=== PATIENT | male | born 1965 | race Caucasian/White ===

== ENCOUNTER → 2018-01-30 | Outpatient (CLI) | payer BC ==
[~2018-01-30] MED LIST: MVI in SODIUM CHLORIDE 0.9% 1,000 ML IVB ONE; MVI in SODIUM CHLORIDE 0.9% 1,010 ML ONE
[2018-01-30 11:30] VITALS: BP 108/55
[2018-01-30 14:35] VITALS: BP 134/85
[2018-01-30 16:15] LABS: Basophils # (auto) 0.1 uL; Basophils % (auto) 0.7 % (0.0-2.0); Eosinophils # (auto) 0.2 uL; Eosinophils % (auto) 2.8 % (0.0-7.0); Hematocrit 48.3 % (41.0-53.0); Hemoglobin 16.3 g/dL (13.5-17.5); Lymphocytes # (auto) 1.8 uL; Lymphocytes % (auto) 21.6 % (10.0-50.0); Mean Corpuscular Hemoglobin 30.6 pg (28.0-32.0); Mean Corpuscular Hgb Conc. 33.6 g/dL (32.0-36.0); Mean Corpuscular Volume 90.9 fL (80.0-100.0); Monocytes # (auto) 0.6 uL; Monocytes % (auto) 7.1 % (0.0-12.0); Neutrophils # (auto) 5.7 uL; Neutrophils % (auto) 67.8 % (37.0-80.0); Nucleated Red Blood Cells % 0.2 %; Platelet Count (auto) 230 10^3/uL (140-450); Red Blood Cells 5.32 10^6/uL (4.5-5.90); Red Cell Distribution Width 13.6 % (11.8-14.3); White Blood Cell 8.4 10^3/uL (4.4-10.8)
[2018-01-30 16:31] LABS: Potassium 3.9 mmol/L (3.5-5.1)
[2018-01-30 16:42] LABS: Albumin 3.5 g/dL (3.4-5.0); BUN/Creatinine Ratio 15.2; Bilirubin, Total 0.4 mg/dL (0.2-1.0); Calcium 9.1 mg/dL (8.5-10.1); Magnesium 2.4 mg/dL (1.6-2.6); Total Protein 6.9 g/dL (6.4-8.2)
== END | disposition home or self-care (01) ==
LOC: CHF HDHVI 11:14
PROVIDERS: ATTEND Internal Medicine Cardiovascular Disease
DX: E83.40 Disorders of magnesium metabolism, unspecified (principal); D64.9 Anemia, unspecified; I10 Essential (primary) hypertension
CPT/HCPCS: 36415; 80053; 83735; 85025; 93005; 96365; 96366; G0463; J3411; J3475

== ENCOUNTER → 2018-02-06 | Outpatient (CLI) | payer BC | END | disposition home or self-care (01) | LOC: Rad HDHVI 15:09 | PROVIDERS: ATTEND Internal Medicine Cardiovascular Disease | DX: I08.1 Rheumatic disorders of both mitral and tricuspid valves (principal); R10.9 Unspecified abdominal pain; I10 Essential (primary) hypertension; E78.00 Pure hypercholesterolemia, unspecified | CPT/HCPCS: 74150; 93306 ==

== ENCOUNTER 2020-01-28 10:49 | Inpatient (IN) | payer BC ==
[~2020-01-28] VITALS: Ht 185.4 cm; Wt 121.3 kg
[2020-01-28] MEDS ORDERED: ADENOSINE 6 MG/2 ML INJ IV ONE ×4 (11:04→11:45)
[2020-01-28] MEDS ORDERED: THIAMINE 100mg/ml INJ (200mg/2ml VIAL) IV ONE (11:15)
[2020-01-28] MEDS ORDERED: SODIUM CHLORIDE 0.9% 1,000 ML IV ONE ×2 (11:15)
[2020-01-28] MEDS ORDERED: LORazepam 2MG/ML-1ML VIAL IV ONE (11:15)
[2020-01-28 11:19] LABS: Eosinophils # (auto) 0.2 10 ^3/uL (0-0.8); Mean Corpuscular Hgb Conc. 34.5 g/dL (32.0-36.0); Monocytes # (auto) 0.4 10 ^3/uL (0-1.3); Red Blood Cells 5.57 10^6/uL (4.5-5.90)
[2020-01-28] MEDS ORDERED: dilTIAZem HCL 50 MG/10 ML VIAL IV ONE (11:20)
[2020-01-28 11:21] LABS: Basophils # (auto) 0.1 10 ^3/uL (0-0.2); Basophils % (auto) 0.7 % (0.0-2.0); Hematocrit 52.3 % (41.0-53.0); Lymphocytes % (auto) 22.9 % (10.0-50.0); Mean Corpuscular Hemoglobin 32.4 pg (28.0-32.0); Mean Corpuscular Volume 93.9 fL (80.0-100.0); Neutrophils # (auto) 6.1 10 ^3/uL (1.6-8.6); Neutrophils % (auto) 69.4 % (37.0-80.0); Nucleated Red Blood Cells % 0.1 %; Platelet Count (auto) 284 10^3/uL (140-450); Red Cell Distribution Width 13.4 % (11.8-14.3); White Blood Cell 8.7 10^3/uL (4.4-10.8)
[2020-01-28] MEDS ORDERED: dilTIAZem 125mg/125ml BAG KIT 125 ML IV ONE ×2 (11:24→11:45)
[2020-01-28 11:36] LABS: Anion Gap 7 (5-15); Blood Urea Nitrogen 11 mg/dL (7-18); Calcium 9.3 mg/dL (8.5-10.1); Carbon Dioxide 23 mmol/L (21-32); Chloride 105 mmol/L (98-107); Glucose 142 mg/dL (74-106); Potassium 4.7 mmol/L (3.5-5.1); Sodium 135 mmol/L (136-145)
[2020-01-28 11:41] LABS: Alanine Aminotransferase 65 U/L (16-61); Alkaline Phosphatase 50 U/L (45-117); Aspartate Aminotransferase 38 U/L (15-37); BUN/Creatinine Ratio 7.6; Bilirubin, Total 0.6 mg/dL (0.2-1.0); GFR African American 66 mL/min; GFR Non-African American 55 mL/min
[2020-01-28] MEDS ORDERED: dilTIAZem 25 MG/5 ML VIAL IV ONE (11:45)
[2020-01-28] MEDS ORDERED: NITROGLYCERIN 0.4 MG SL TAB SL PRN (12:15)
[2020-01-28] MEDS ORDERED: FOLIC ACID 1 MG, MULTIPLE VITAMIN 10 ML, MAGNESIUM SULF SDV 50% 8 MEQ, THIAMINE INJ 100... INJ SCH ×5 (12:15)
[2020-01-28] MEDS ORDERED: LORazepam 2MG/ML-1ML VIAL IV PRN (12:15)
[2020-01-28] MEDS ORDERED: ACETAMINOPHEN 500 MG TAB PO PRN (12:15)
[2020-01-28] MEDS ORDERED: HYDROcodone-ACET 5/325MG TAB PO PRN (12:15)
[2020-01-28] MEDS ORDERED: ONDANSETRON HCL 4 MG/2 ML VIAL IV PRN (12:15)
[2020-01-28] MEDS ORDERED: MORPHINE SULF INJ 2 MG/ML SYRINGE 1ML IV PRN ×2 (12:15)
[2020-01-28] MEDS: METOPROLOL SUCCINATE XL 50 MG TAB PO SCH (12:23)
[2020-01-28] MEDS ORDERED: DIGOXIN (250MCG/ML) 2 ML AMPULE ONE (13:42)
[2020-01-28] MEDS ORDERED: GLUCTAB8 PO (13:44)
[2020-01-28] MEDS ORDERED: OMEG306C PO (13:44)
[2020-01-28] MEDS ORDERED: ASCO500T11 PO (13:44)
[2020-01-28] MEDS ORDERED: MULT-940 PO (13:44)
[2020-01-28] MEDS ORDERED: TEST200I32 IM (13:44)
[2020-01-28] MEDS ORDERED: CHOL20007 PO (13:44)
[2020-01-28] MEDS ORDERED: [UNRECOGNIZED DRUG - CODE] PO (13:44)
[2020-01-28] MEDS ORDERED: TADA20TA47 PO (13:44)
--- NOTE | 2020-01-28 15:06 | NUR ---
Admit to [facility] admitted to [facility] via gurney on ekg monitor, and portable 02 at 2LNC. Patient transfered to bed, connected to unit monitoring and oxygen, and weighed by bedscale. Patient oriented to ALDA SMITH, primary RN, unit, room, bed, and unit policies regarding patient care and visiting hours. All questions and concerns addressed, patient verbalized understanding. Vital Signs: 116/74 133 14 98% on 2L NC 97.3F Oral
--- NOTE | 2020-01-28 15:08 | NUR ---
ECHO Ted, technology services manager, at bedside.
[2020-01-28] MEDS: DIGOXIN (250MCG/ML) 2 ML AMPULE IV SCH ×2 (15:51→21:13)
[2020-01-28 16:00] VITALS: BP_SYST 116; BP_SYST 142; BP_DIAS 74
[2020-01-28 16:01] LABS: Magnesium 2.3 mg/dL (1.6-2.6)
[2020-01-28 16:08] LABS: Cholesterol 209 mg/dL (< 200); HDL Cholesterol 33 mg/dL (40-59); Triglycerides 425 mg/dL (< 150)
[2020-01-28 16:09] LABS: Free T3 3.53 pg/mL (2.3-4.2); Free T4 (Free Thyroxine) 1.05 ng/dL (0.89-1.76)
[2020-01-28 19:00] VITALS: BP 138/89
[2020-01-28 20:00] VITALS: BP_SYST 129; BP_SYST 134; BP_DIAS 84; BP_DIAS 85
--- NOTE | 2020-01-28 20:00 | NUR ---
SHIFT OPENING NOTE RECEIVED PATIENT AWAKE, ALERT AND ORIENTED X4. NO SOB, DISTRESS OR PAIN NOTED. ON ROOM AIR POX 96%. ON CARDIZEM DRIP AT 10 AND INFUSING BANANA BAG. USES URINAL INDEPENDENTLY. PHYSICAL ASSESSMENT COMPLETED, SEE INTERVENTIONS. INSTRUCTED ON POC AND TO CALL FOR ASSIST NEEDED. BED IS IN THE LOWEST POSITION WITH SIDE RAILS UP X2, CALL LIGHT IS WITHIN REACH.
[2020-01-28 21:00] VITALS: BP 132/81
[2020-01-28 22:00] VITALS: BP 127/82
[2020-01-29] VITALS (10 sets, daily range): BP systolic 107–157; BP diastolic 65–94
--- NOTE | 2020-01-29 02:15 | NUR ---
ROUNDS PATIENT IS QUIETLY LAYING IN BED SLEEPING. NO SOB, DISTRESS OR PAIN NOTED. PATIENT HAS SLEEP APNEA WITH SATS DECREASING TO LOW 80'S UNSUSTAINED. WILL CONTINUE TO CLOSELY MONITOR.
[2020-01-29] MEDS: DIGOXIN (250MCG/ML) 2 ML AMPULE IV SCH (02:17)
--- NOTE | 2020-01-29 07:15 | NUR ---
END OF SHIFT REPORT GIVEN AND CARE ENDORSED TO FRANKIE CORONADO.
[2020-01-29] MEDS ORDERED: APIXABAN 2.5 MG TAB PO SCH (10:00)
[2020-01-29] MEDS ORDERED: ASPirin 81 mg TAB PO SCH (10:00)
[2020-01-29] MEDS: METOPROLOL SUCCINATE XL 50 MG TAB PO SCH (10:08)
[2020-01-29 11:18] LABS: Albumin 3.5 g/dL (3.4-5.0); Calcium 9.2 mg/dL (8.5-10.1); Potassium 4.2 mmol/L (3.5-5.1)
[2020-01-29 11:21] LABS: BUN/Creatinine Ratio 11.1; Bilirubin, Total 0.6 mg/dL (0.2-1.0); Total Protein 6.8 g/dL (6.4-8.2)
[2020-01-29] MEDS ORDERED: APIX5TAB PO (11:33)
[2020-01-29] MEDS ORDERED: METO-6 PO ×2 (11:33→11:35)
[2020-01-29] MEDS ORDERED: METOPROLOL SUCCINATE XL 50 MG TAB PO ONE (11:45)
[2020-01-29] MEDS ORDERED: ATOR20TA50 PO (11:47)
[2020-01-29] MEDS ORDERED: APIXABAN 5 MG TAB PO SCH (22:00)
== END 2020-01-29 16:35 | disposition home or self-care (01) | DRG 308 ==
LOC: ER 10:49 → TELE 10:50 → DOU IN ICU 14:49
PROVIDERS: ADMIT Nurse Practitioner Acute Care; ATTEND Internal Medicine
DX: I48.92 Unspecified atrial flutter (principal); I50.31 Acute diastolic (congestive) heart failure; I13.0 Hypertensive heart and chronic kidney disease with heart failure and stage 1 through stage 4 chronic kidney disease, or unspecified chronic kidney disease; I48.91 Unspecified atrial fibrillation; N18.30 Chronic kidney disease, stage 3 unspecified; F10.20 Alcohol dependence, uncomplicated; E66.9 Obesity, unspecified; E78.5 Hyperlipidemia, unspecified; F12.90 Cannabis use, unspecified, uncomplicated; F17.200 Nicotine dependence, unspecified, uncomplicated; F41.9 Anxiety disorder, unspecified; Z79.01 Long term (current) use of anticoagulants; Z68.35 Body mass index [BMI] 35.0-35.9, adult
CPT/HCPCS: 36415; 71045; 80053; 80061; 80320; 83036; 83735; 83880; 84439; 84443; 84481; 84484; 85025; 93005; 93306; 96374; 96375; 99291; G0378; J0153

== ENCOUNTER 2020-02-08 09:22 | Inpatient (IN) | payer BC ==
[~2020-02-08] VITALS: Ht 185.4 cm; Wt 121.3 kg
[~2020-02-08 09:22] MED LIST changes: +APIX5TAB PO; +ASCO500T11 PO; +ATOR20TA50 PO; +CHOL20007 PO; +GLUCTAB8 PO; +METO-6 PO; +MULT-940 PO; -MVI in SODIUM CHLORIDE 0.9% 1,000 ML IVB ONE; -MVI in SODIUM CHLORIDE 0.9% 1,010 ML ONE; +OMEG306C PO; +TADA20TA47 PO; +TEST200I32 IM
[2020-02-08] MEDS ORDERED: THIAMINE 100mg/ml INJ (200mg/2ml VIAL) ONE (09:44)
[2020-02-08] MEDS ORDERED: SODIUM CHLORIDE 0.9% 1,000 ML IV ONE (10:00)
[2020-02-08] MEDS ORDERED: ASPirin 81 mg TAB PO ONE (10:00)
[2020-02-08] MEDS ORDERED: SODIUM CHLORIDE 0.9% 1,000 ML IVB ONE (10:00)
[2020-02-08] MEDS ORDERED: THIAMINE 100mg/ml INJ (200mg/2ml VIAL) IV ONE (10:15)
[2020-02-08 10:22] LABS: Basophils # (auto) 0.1 10 ^3/uL (0-0.2); Basophils % (auto) 0.8 % (0.0-2.0); Eosinophils # (auto) 0.3 10 ^3/uL (0-0.8); Eosinophils % (auto) 3.4 % (0.0-7.0); Hematocrit 48.9 % (41.0-53.0); Hemoglobin 16.6 g/dL (13.5-17.5); Lymphocytes # (auto) 1.9 10 ^3/uL (0.4-5.4); Lymphocytes % (auto) 23.2 % (10.0-50.0); Mean Corpuscular Hemoglobin 32.1 pg (28.0-32.0); Mean Corpuscular Volume 94.4 fL (80.0-100.0); Monocytes # (auto) 0.6 10 ^3/uL (0-1.3); Monocytes % (auto) 6.8 % (0.0-12.0); Neutrophils # (auto) 5.4 10 ^3/uL (1.6-8.6); Neutrophils % (auto) 65.8 % (37.0-80.0); Nucleated Red Blood Cells % 0.1 %; Platelet Count (auto) 230 10^3/uL (140-450); Red Blood Cells 5.18 10^6/uL (4.5-5.90); Red Cell Distribution Width 13.1 % (11.8-14.3); White Blood Cell 8.2 10^3/uL (4.4-10.8)
[2020-02-08 10:25] LABS: Alanine Aminotransferase 66 U/L (16-61); Albumin 3.7 g/dL (3.4-5.0); Anion Gap 10 (5-15); Blood Alcohol < 3.0 mg/dL (0-5); Blood Urea Nitrogen 13 mg/dL (7-18); Calcium 8.6 mg/dL (8.5-10.1); Carbon Dioxide 22 mmol/L (21-32); Chloride 105 mmol/L (98-107); Glucose 171 mg/dL (74-106); Potassium 4.1 mmol/L (3.5-5.1); Sodium 137 mmol/L (136-145)
[2020-02-08 10:30] LABS: Alkaline Phosphatase 51 U/L (45-117); Aspartate Aminotransferase 42 U/L (15-37); BUN/Creatinine Ratio 11.2; Bilirubin, Total 0.4 mg/dL (0.2-1.0); GFR African American 84 mL/min; GFR Non-African American 70 mL/min; Total Protein 7.2 g/dL (6.4-8.2)
[2020-02-08] MEDS ORDERED: METOPROLOL TARTRATE 50 MG TAB PO ONE (12:30)
[2020-02-08] MEDS ORDERED: METOPROLOL TARTRATE 1MG/1ML-5ML VIAL IV ONE ×2 (12:45→16:15)
[2020-02-08] MEDS ORDERED: ACETAMINOPHEN 500 MG TAB PO PRN (16:15)
[2020-02-08] MEDS ORDERED: LORazepam 0.5 MG TAB PO PRN (16:15)
[2020-02-08] MEDS ORDERED: DOCUSATE CALCIUM 240 MG CAP PO PRN (16:15)
[2020-02-08] MEDS ORDERED: MORPHINE SULF INJ 2 MG/ML SYRINGE 1ML IV PRN ×2 (16:15)
[2020-02-08] MEDS ORDERED: NITROGLYCERIN 0.4 MG SL TAB SL PRN (16:15)
[2020-02-08] MEDS ORDERED: LABETALOL HCL 5 MG/ML 4ML SYRINGE IV ONE (16:15)
[2020-02-08] MEDS ORDERED: METOPROLOL SUCCINATE XL 50 MG TAB PO ONE (17:45)
[2020-02-08] MEDS ORDERED: DIGOXIN (250MCG/ML) 2 ML AMPULE IV ONE (17:45)
[2020-02-08 18:47] LABS: INR 0.96 (0.9-1.15)
[2020-02-08] MEDS: LABETALOL HCL 5 MG/ML 4ML SYRINGE IV PRN ×4 (20:46→23:12)
[2020-02-08] MEDS: APIXABAN 5 MG TAB PO SCH (22:00)
[2020-02-09] MEDS ORDERED: SODIUM CHLORIDE 0.9% 500 ML IV ONE ×2 (01:45→04:15)
[2020-02-09] MEDS ORDERED: METOPROLOL TARTRATE 50 MG TAB PO ONE ×2 (02:45→04:15)
[2020-02-09] MEDS: LABETALOL HCL 5 MG/ML 4ML SYRINGE IV PRN (03:14)
[2020-02-09] MEDS ORDERED: cloNIDine HCL 0.1 MG TAB PO PRN (08:30)
[2020-02-09 08:33] LABS: Basophils # (auto) 0.1 10 ^3/uL (0-0.2); Basophils % (auto) 0.8 % (0.0-2.0); Eosinophils # (auto) 0.3 10 ^3/uL (0-0.8); Eosinophils % (auto) 2.7 % (0.0-7.0); Hematocrit 47.8 % (41.0-53.0); Hemoglobin 16.2 g/dL (13.5-17.5); Lymphocytes # (auto) 1.9 10 ^3/uL (0.4-5.4); Lymphocytes % (auto) 18.2 % (10.0-50.0); Mean Corpuscular Hemoglobin 31.6 pg (28.0-32.0); Mean Corpuscular Hgb Conc. 33.8 g/dL (32.0-36.0); Mean Corpuscular Volume 93.5 fL (80.0-100.0); Monocytes # (auto) 0.7 10 ^3/uL (0-1.3); Monocytes % (auto) 6.5 % (0.0-12.0); Neutrophils # (auto) 7.6 10 ^3/uL (1.6-8.6); Neutrophils % (auto) 71.8 % (37.0-80.0); Nucleated Red Blood Cells % 0.2 %; Platelet Count (auto) 261 10^3/uL (140-450); Red Blood Cells 5.11 10^6/uL (4.5-5.90); Red Cell Distribution Width 12.9 % (11.8-14.3); White Blood Cell 10.5 10^3/uL (4.4-10.8)
[2020-02-09 08:56] LABS: Alanine Aminotransferase 50 U/L (16-61); Albumin 3.4 g/dL (3.4-5.0); Anion Gap 8 (5-15); Aspartate Aminotransferase 23 U/L (15-37); BUN/Creatinine Ratio 13.7; Blood Urea Nitrogen 13 mg/dL (7-18); Calcium 8.4 mg/dL (8.5-10.1); Carbon Dioxide 22 mmol/L (21-32); Chloride 108 mmol/L (98-107); Cholesterol 173 mg/dL (< 200); GFR African American 106 mL/min; GFR Non-African American 88 mL/min; Glucose 114 mg/dL (74-106); Potassium 4.3 mmol/L (3.5-5.1); Sodium 138 mmol/L (136-145)
[2020-02-09 09:00] LABS: Alkaline Phosphatase 43 U/L (45-117); Bilirubin, Total 0.4 mg/dL (0.2-1.0); HDL Cholesterol 35 mg/dL (40-59); Total Protein 6.8 g/dL (6.4-8.2); Triglycerides 471 mg/dL (< 150)
[2020-02-09] MEDS: THIAMINE HCL 100 MG TAB PO SCH (09:01)
[2020-02-09] MEDS: ATORVASTATIN 20 MG TAB PO SCH (09:01)
[2020-02-09] MEDS: APIXABAN 5 MG TAB PO SCH ×2 (09:01→22:03)
[2020-02-09] MEDS: METOPROLOL TARTRATE 50 MG TAB PO SCH ×2 (09:02→22:04)
[2020-02-09] MEDS: PANTOPRAZOLE 40 MG TAB PO SCH (09:02)
[2020-02-09] MEDS ORDERED: METOPROLOL SUCCINATE XL 50 MG TAB PO SCH ×2 (10:00)
[2020-02-09] MEDS ORDERED: METOPROLOL TARTRATE 50 MG TAB PO SCH (10:00)
--- NOTE | 2020-02-09 14:00 | NUR ---
Telemetry admit from [facility] admitted to Telemetry unit after SBAR received. Patient oriented to primary RN, unit, room, bed, and unit policies regarding patient care and visiting hours. Patient now on continuous telemetry monitoring, tele box # [id number] and telemetry reading on arrival to unit is SR 75. Patient weighed by bedscale and encouraged to call if they need something. All questions and concerns addressed, patient verbalized understanding.
[2020-02-09 14:24] VITALS: BP 137/86
[2020-02-09 17:00] VITALS: BP 132/98
[2020-02-09 20:00] VITALS: BP 135/87
[2020-02-10 00:43] VITALS: BP 146/94
[2020-02-10 06:11] VITALS: BP 142/96
--- NOTE | 2020-02-10 07:13 | NUR ---
PT AMBULATED THROUGH THE SHIFT IN THE PATINO'DENIES PAIN;VITAL SIGNS STABLE; CALL LIGHT IN REACH;IN BED WATCHING TELEVISION.
[2020-02-10 08:32] VITALS: BP 126/78
[2020-02-10] MEDS: ATORVASTATIN 20 MG TAB PO SCH (09:12)
[2020-02-10] MEDS: PANTOPRAZOLE 40 MG TAB PO SCH (09:13)
[2020-02-10] MEDS: APIXABAN 5 MG TAB PO SCH ×2 (09:13→21:39)
[2020-02-10] MEDS: THIAMINE HCL 100 MG TAB PO SCH (09:13)
[2020-02-10] MEDS: METOPROLOL TARTRATE 50 MG TAB PO SCH ×2 (09:14→21:40)
--- NOTE | 2020-02-10 09:20 | NUR ---
Hospitalist Rounded Dr. Christianson rounded on patient. Awaiting cardiology consult.
[2020-02-10] MEDS ORDERED: FOLIC ACID 1 MG, MULTIPLE VITAMIN 10 ML, MAGNESIUM SULF SDV 50% 8 MEQ, THIAMINE INJ 100... INJ SCH ×5 (12:00)
[2020-02-10 13:44] VITALS: BP 147/96
[2020-02-10 16:29] VITALS: BP 150/91
--- NOTE | 2020-02-10 18:50 | NUR ---
Shift Closing Note Patient ambulating on unit in no obvious distress. Care endorsed to overnight cashier RN.
--- NOTE | 2020-02-10 19:40 | NUR ---
Opening Shift Note Assumed care of patient, awake and alert. No S/S of distress/SOB or pain. Updated on POC and to call for assist PRN, call light within reach, will continue to monitor for changes Q1hr and PRN.
[2020-02-11 06:07] VITALS: BP 125/67
--- NOTE | 2020-02-11 07:30 | NUR ---
Opening Shift Note Assumed care of patient, pt awake,alert and oriented No S/S of distress/SOB or pain. Instructed on POC and to call for assist PRN, will continue to monitor for changes Q1hr and PRN.
--- NOTE | 2020-02-11 09:00 | NUR ---
HERE,RECEIVED CLEARANCE FOR DISCHARGE, MADE AWARE PATIENT TELEMETRY IS SINUS BRADYCARDIA 58,RECEIVED ORDER TO DECREASE DOSE OF LOPRESSOR TO 50 MG BID SEE WRITTEN ORDERS.
[2020-02-11 09:03] VITALS: BP 134/71
[2020-02-11] MEDS ORDERED: METOPROLOL TARTRATE 50 MG TAB PO SCH (10:00)
[2020-02-11] MEDS: THIAMINE HCL 100 MG TAB PO SCH (10:11)
[2020-02-11] MEDS: APIXABAN 5 MG TAB PO SCH (10:12)
[2020-02-11] MEDS: ATORVASTATIN 20 MG TAB PO SCH (10:13)
[2020-02-11] MEDS: PANTOPRAZOLE 40 MG TAB PO SCH (10:14)
--- NOTE | 2020-02-11 10:20 | NUR ---
MD VISIT DR. Nola STANLEY HERE TO SEE AND EXAMINED PATIENT,UPDATED PLAN OF CARE AND DISCHARGE PLAN,RECEIVED DISCHARGE ORDER
[2020-02-11 11:34] VITALS: BP 114/59
--- NOTE | 2020-02-11 12:45 | NUR ---
Discharge instructions given as ordered. Encourage to follow up with PMD as instructed. All questions and concerns addressed. Patient verbalized understanding. Medication reconciliation form completed and copy given to patient. Home medications held in Pharmacy returned to patient. IV removed with catheter intact, pressure dressing applied, Telemetry unit returned to ICU. Patient taken to vehicle via wheelchair with all personal belongings, accompanied by staff and family member. No distress noted at time of departure.
--- NOTE | 2020-02-11 15:31 | NUR ---
Assessment Patient was discharge prior to SW to initiate assessment. Addendum: 02/11/20 at 1531 by PARISA WALDEN SS Amended: Links added.
== END 2020-02-11 12:45 | disposition home or self-care (01) | DRG 281 ==
LOC: ER 09:22 → TELE-WESTW 09:23 → TELE 02-09 05:43 → TELE-CENTR 02-09 14:28
PROVIDERS: ADMIT Family Medicine; ATTEND Family Medicine
DX: I48.91 Unspecified atrial fibrillation (principal); I21.A1 Myocardial infarction type 2; F10.139 Alcohol abuse with withdrawal, unspecified; E86.0 Dehydration; R00.0 Tachycardia, unspecified; I16.0 Hypertensive urgency; E78.5 Hyperlipidemia, unspecified; F17.200 Nicotine dependence, unspecified, uncomplicated; R73.9 Hyperglycemia, unspecified; I10 Essential (primary) hypertension; J44.9 Chronic obstructive pulmonary disease, unspecified; E66.01 Morbid (severe) obesity due to excess calories; E78.00 Pure hypercholesterolemia, unspecified; Y90.9 Presence of alcohol in blood, level not specified; Z79.899 Other long term (current) drug therapy; Z71.6 Tobacco abuse counseling; Z68.33 Body mass index [BMI] 33.0-33.9, adult
CPT/HCPCS: 36415; 71046; 80053; 80061; 80320; 84443; 84484; 85025; 85610; 85730; 87081; 93886; 96361; 96374; 96375; G0378; J3490

== ENCOUNTER 2021-12-04 14:07 | Inpatient (IN) | payer BC ==
[~2021-12-04] VITALS: Ht 177.8 cm; Wt 133.3 kg
[2021-12-04] MEDS ORDERED: ASPirin 81 mg TAB PO ONE (14:15)
[2021-12-04 14:34] LABS: Basophils # (auto) 0.1 10 ^3/uL (0-0.2); Basophils % (auto) 0.7 % (0.0-2.0); Eosinophils # (auto) 0.1 10 ^3/uL (0-0.8); Eosinophils % (auto) 1.7 % (0.0-7.0); Hematocrit 49.6 % (41.0-53.0); Hemoglobin 16.2 g/dL (13.5-17.5); Lymphocytes # (auto) 1.3 10 ^3/uL (0.4-5.4); Lymphocytes % (auto) 17.5 % (10.0-50.0); Mean Corpuscular Hemoglobin 29.8 pg (28.0-32.0); Mean Corpuscular Hgb Conc. 32.7 g/dL (32.0-36.0); Mean Corpuscular Volume 91.1 fL (80.0-100.0); Monocytes # (auto) 0.5 10 ^3/uL (0-1.3); Monocytes % (auto) 6.3 % (0.0-12.0); Neutrophils # (auto) 5.6 10 ^3/uL (1.6-8.6); Neutrophils % (auto) 73.8 % (37.0-80.0); Nucleated Red Blood Cells % 0.1 %; Red Blood Cells 5.44 10^6/uL (4.5-5.90); Red Cell Distribution Width 13.7 % (11.8-14.3); White Blood Cell 7.6 10^3/uL (4.4-10.8)
[2021-12-04 14:52] LABS: Calcium 9.5 mg/dL (8.5-10.1); Magnesium 2.2 mg/dL (1.6-2.6); Potassium 3.9 mmol/L (3.5-5.1)
[2021-12-04 14:55] LABS: BUN/Creatinine Ratio 12.4; Bilirubin, Total 0.6 mg/dL (0.2-1.0); Total Protein 7.1 g/dL (6.4-8.2)
[2021-12-04] MEDS ORDERED: ONDANSETRON HCL 4 MG/2 ML VIAL IV PRN (15:30)
[2021-12-04] MEDS ORDERED: ACETAMINOPHEN 325 MG TAB PO PRN (15:30)
[2021-12-04] MEDS ORDERED: MORPHINE SULFATE INJ 2 MG/ml SYRG IV PRN (15:30)
[2021-12-04] MEDS ORDERED: HYDROcodone-ACET 5/325MG TAB PO PRN (15:30)
[2021-12-04] MEDS: SODIUM CHLORIDE 0.9% 1,000 ML IV SCH (15:58)
[2021-12-04] MEDS ORDERED: AMIODARONE HCL 150 MG in D5W 5% 100 ML IV ONE (18:15)
[2021-12-04] MEDS ORDERED: AMIODARONE 450mg/250ml AE 250 ML IV SCH (18:15)
[2021-12-04] MEDS: APIXABAN 5 MG TAB PO SCH (22:45)
[2021-12-05] MEDS: AMIODARONE 450mg/250ml AE 250 ML IV SCH ×2 (01:33→13:51)
[2021-12-05] MEDS ORDERED: METOPROLOL TARTRATE 25 MG TAB PO ONE (05:45)
[2021-12-05 06:45] LABS: Basophils # (auto) 0.1 10 ^3/uL (0-0.2); Basophils % (auto) 0.8 % (0.0-2.0); Eosinophils # (auto) 0.2 10 ^3/uL (0-0.8); Eosinophils % (auto) 2.6 % (0.0-7.0); Hematocrit 46.9 % (41.0-53.0); Hemoglobin 15.5 g/dL (13.5-17.5); Lymphocytes # (auto) 1.3 10 ^3/uL (0.4-5.4); Lymphocytes % (auto) 15.1 % (10.0-50.0); Mean Corpuscular Hemoglobin 30.5 pg (28.0-32.0); Mean Corpuscular Volume 92.2 fL (80.0-100.0); Monocytes # (auto) 0.5 10 ^3/uL (0-1.3); Monocytes % (auto) 6.2 % (0.0-12.0); Neutrophils # (auto) 6.4 10 ^3/uL (1.6-8.6); Neutrophils % (auto) 75.3 % (37.0-80.0); Red Blood Cells 5.08 10^6/uL (4.5-5.90); Red Cell Distribution Width 13.8 % (11.8-14.3); White Blood Cell 8.5 10^3/uL (4.4-10.8)
[2021-12-05 07:01] LABS: Albumin 3.4 g/dL (3.4-5.0); Calcium 8.1 mg/dL (8.5-10.1); Potassium 4.6 mmol/L (3.5-5.1)
[2021-12-05 07:04] LABS: BUN/Creatinine Ratio 16.5
[2021-12-05 07:07] LABS: Bilirubin, Total 0.5 mg/dL (0.2-1.0); Total Protein 6.4 g/dL (6.4-8.2)
[2021-12-05] MEDS: APIXABAN 5 MG TAB PO SCH ×2 (09:20→22:13)
[2021-12-05] MEDS: SODIUM CHLORIDE 0.9% 1,000 ML IV SCH ×3 (09:21→21:08)
[2021-12-05] MEDS: METOPROLOL SUCCINATE XL 50 MG TAB PO SCH (09:21)
[2021-12-05] MEDS ORDERED: ENOXAPARIN SOD 40 MG/0.4 ML SYRINGE SC SCH (10:00)
[2021-12-05 11:58] LABS: Urine Bacteria NONE SEEN /hpf (None Seen); Urine Blood Negative /uL (Negative); Urine Specific Gravity 1.015 (1.001-1.035); Urine WBC <1 /hpf (0 - 3)
[2021-12-05 12:14] LABS: Alcohol, Urine < 3.0 mg/dL (0-10); Amphetamine Screen, Urine NEGATIVE (NEGATIVE); Barbiturate Scree,Urine NEGATIVE (NEGATIVE); Benzodiazephine Screen, Urine NEGATIVE (NEGATIVE); Cannabinoid Screen, Urine POSITIVE (NEGATIVE); Cocaine Screen, Urine NEGATIVE (NEGATIVE); Opiate Scree,Urine NEGATIVE (NEGATIVE)
[2021-12-05 12:21] LABS: Phencyclidine Screen, Urine NEGATIVE (NEGATIVE)
[2021-12-05] MEDS ORDERED: DIGOXIN (250MCG/ML) 2 ML AMPULE IV ONE (13:00)
[2021-12-05] MEDS ORDERED: MAGNESIUM SULFATE 1GM/100ML 100 ML IV ONE (14:00)
[2021-12-05] MEDS: DIGOXIN (250MCG/ML) 2 ML AMPULE IV SCH ×2 (16:29→22:13)
[2021-12-05 21:15] VITALS: BP 154/99
[2021-12-05 22:00] VITALS: BP 154/99
[2021-12-06] VITALS (8 sets, daily range): BP systolic 125–151; BP diastolic 86–112
[2021-12-06] MEDS: DIGOXIN (250MCG/ML) 2 ML AMPULE IV SCH (04:04)
[2021-12-06] MEDS: AMIODARONE 450mg/250ml AE 250 ML IV SCH ×2 (05:47→21:22)
[2021-12-06 06:23] LABS: Calcium 8.7 mg/dL (8.5-10.1); Potassium 4.5 mmol/L (3.5-5.1)
[2021-12-06 06:28] LABS: Magnesium 2.1 mg/dL (1.6-2.6)
[2021-12-06] MEDS: APIXABAN 5 MG TAB PO SCH ×2 (09:49→21:22)
[2021-12-06] MEDS: METOPROLOL SUCCINATE XL 50 MG TAB PO SCH (09:50)
[2021-12-06] MEDS ORDERED: fentaNYL CITRATE 100 MCG/2 ML VL IV ONE (15:45)
[2021-12-06] MEDS ORDERED: MIDAZOLAM HCL 5 MG/ML-1ML VIAL IV ONE (15:45)
[2021-12-06] MEDS ORDERED: LIDOCAINE VISCOUS 2% 15ML UD PO ONE (15:45)
[2021-12-06] MEDS: SODIUM CHLORIDE 0.9% 1,000 ML IV SCH (16:40)
[2021-12-06] MEDS ORDERED: MIDAZOLAM HCL 2MG/2ML 2ml VIAL (1mg/ml) ONE (17:20)
[2021-12-07 05:00] VITALS: BP 152/90
[2021-12-07] MEDS: SODIUM CHLORIDE 0.9% 1,000 ML IV SCH (06:00)
[2021-12-07 07:55] LABS: BUN/Creatinine Ratio 12.1; Calcium 8.7 mg/dL (8.5-10.1); Magnesium 2.1 mg/dL (1.6-2.6); Phosphorus 3.6 mg/dL (2.5-4.90); Potassium 4.4 mmol/L (3.5-5.1)
[2021-12-07 08:00] VITALS: BP 164/88
[2021-12-07 09:00] VITALS: BP 164/88
[2021-12-07] MEDS: APIXABAN 5 MG TAB PO SCH (09:22)
[2021-12-07] MEDS: METOPROLOL SUCCINATE XL 50 MG TAB PO SCH (09:24)
[2021-12-07] MEDS ORDERED: AMIO200T4 PO (10:26)
[2021-12-07] MEDS ORDERED: AMIO400T7 PO (10:26)
[2021-12-07 11:08] VITALS: BP 164/88
[2021-12-07] MEDS ORDERED: AMIODARONE HCL 200 MG TAB PO SCH (22:00)
== END 2021-12-07 12:35 | disposition home or self-care (01) | DRG 281 ==
LOC: ER 14:07 → EDBD 14:07 → TELE 15:30 → TELE-EAST 12-05 20:36
PROVIDERS: ADMIT Internal Medicine; ATTEND Internal Medicine
PROC: B24BZZ4 Ultrasonography of Heart with Aorta, Transesophageal (ICD-10-PCS; principal; 2021-12-06)
PROC: 5A2204Z Restoration of Cardiac Rhythm, Single (ICD-10-PCS; 2021-12-06)
DX: I48.91 Unspecified atrial fibrillation (principal); I21.A1 Myocardial infarction type 2; D68.69 Other thrombophilia; N17.9 Acute kidney failure, unspecified; Z68.41 Body mass index [BMI] 40.0-44.9, adult; I48.92 Unspecified atrial flutter; I12.9 Hypertensive chronic kidney disease with stage 1 through stage 4 chronic kidney disease, or unspecified chronic kidney disease; N18.9 Chronic kidney disease, unspecified; E66.9 Obesity, unspecified; F17.200 Nicotine dependence, unspecified, uncomplicated; E78.5 Hyperlipidemia, unspecified; I25.2 Old myocardial infarction; Z79.01 Long term (current) use of anticoagulants; Z79.899 Other long term (current) drug therapy; Z20.822 Contact with and (suspected) exposure to COVID-19; Z71.6 Tobacco abuse counseling; F12.90 Cannabis use, unspecified, uncomplicated
CPT/HCPCS: 36415; 71045; 80048; 80053; 80307; 81001; 83735; 83880; 84100; 84439; 84443; 84484; 85025; 92960; 93005; 93306; 93312; 96365; 96368; 99152; 99291; G0378; J2250; J7060